=== PATIENT | female | born 1960 | race African-American/Black ===

== ENCOUNTER 2016-07-20 11:41 | Emergency (ER) | payer BC, OTHER ==
[2016-07-20] MEDS ORDERED: FLUORESCEIN OPHTH 1 MG STRIP As Ordered ONE (13:13)
[2016-07-20] MEDS ORDERED: TETRACAINE 0.5% OPHTH SOLN 4ML As Ordered ONE (13:13)
--- NOTE | 2016-07-20 13:49 | EDDOCDS ---
Physician Documentation [facility] Name: Jason Ferrera Age: 55 yrs Sex: Female : 1960 Arrival Date: 07/20/2016 Time: 11:41 Bed I10 / 23 Private MD: Ok Gutierres A. Disposition: 07/20/16 13:28 Discharged to Home/Self Care. Impression: Local infection of the skin and subcutaneous tissue, unspecified, Zoster [herpes zoster] - Most likely above Left eye. - Condition is Stable. - Discharge Instructions: Shingles, [id number]. - Prescriptions for Clindamycin HCl 300 mg Oral Capsule - take 1 capsule by ORAL route every 6 hours; 40 capsule. Valtrex 1 g Oral Tablet - take 1 tablet by ORAL route every 8 hours for 7 days; 21 tablet. - Medication Reconciliation, Local Pharmacy Hours form. - Follow up: Ok Gutierres; When: 1 - 2 days; Reason: Recheck today's complaints, Continuance of care. Follow up: Emergency Department; Reason: Worsening of conditions. Follow up: Moshe Jimenez; When: 1 - 2 days; Reason: Further diagnostic work-up, Recheck today's complaints, Continuance of care. - Problem is new. - Symptoms have improved. Historical: - Allergies: no known allergies; - Home Meds: 1. hydrochlorothiazide 12.5 mg Oral cap 1 cap once daily 2. metformin 500 mg Oral Tb24 1 tab once daily 3. losartan 25 mg oral tab 1 tab once daily 4. atorvastatin oral oral 1 tab nightly 5. aspirin 81 mg Oral chew 1 tab once daily 6. Augmentin Oral every 12 hours - PMHx: Diabetes - NIDDM: controlled; Hypertension; - PSHx: ; Cystectomy; - Social history: Smoking status: Patient states was never smoker of tobacco. No barriers to communication noted, The patient speaks fluent Israeli. - Family history: Not pertinent. - : The pt / caregiver states he / she is not on anticoagulants. Home medication list is obtained from the patient. - Exposure Risk Screening:: None identified. Vital Signs: 07/20 11:44 BP 162 / 91; Pulse 93; Resp 18 S; Temp 97.4(O); Pulse Ox 100% on R/A; Weight 70.76 kg / gr2 156 lbs (R); Height 5 ft. 3 in. (160.02 cm) (R); Pain 0/10; 13:34 BP 152 / 99; Pulse 97; Resp 18; Temp 97.8; Pulse Ox 98% ; Pain 0/10; jam1 11:44 Body Mass Index 27.63 (70.76 kg, 160.02 cm) gr2 Visual Acuity: 13:17 Left Eye Visual acuity 20/60, ; Right Eye Visual acuity 20/100, ; Without Lenses; kr3 MDM: 13:10 Tetracaine (PF) Drops 0.5 % 2 drps Ophthalmic once ordered. ef1 13:10 Flouroscein strips to bedside ordered. ef1 13:10 Visual Acuity ordered. ef1 Administered Medications: 13:28 Drug: Tetracaine (PF) 2 drps [tetracaine HCl (PF) 0.5 % eye drops (2 drps)] {Note: use kr3 by Francisco J CARDENAS} Route: Ophthalmic; Site: left eye; Signatures: Jagdish Robbins RN RN jmk Robie, Kathleen, RN RN kr3 Eufemia Johnson, PA-C PA-C ef1 Tawnya Phillip,OLINDA RN ms18 MTDD
--- NOTE | 2016-07-20 13:49 | EDDOCDS ---
Nurse's Notes [facility] Name: Jason Ferrera Age: 55 yrs Sex: Female : 1960 Arrival Date: 07/20/2016 Time: 11:41 Bed I10 / 23 Private MD: Ok Gutierres A. Diagnosis: Local infection of the skin and subcutaneous tissue, unspecified;Zoster [herpes zoster]-Most likely above Left eye Presentation: 07/20 11:46 Presenting complaint: Patient states: that she went to urgent care for facial swelling ms18 and was given antibiotics. Pt states that the swelling is now worse. Swelling is noted to be on pt's L upper eye lid and partially on the pt's R eyebrow area. Pt denies any blurry vision at this time. Mechanism of Injury: No Mechanism of Injury. The patient denies any loss of vision. Adult Sepsis Screening: The patient does not have new or worsening altered mentation. Patient's respiratory rate is less than 22. Systolic blood pressure is greater than 100. Patient has a qSOFA score of 0- Negative Sepsis Screen. Suicide/Homicide risk assessment- the patient denies having any suicidal and/or homicidal ideations and does not present with any other emotional, behavioral or mental health complaints. Status: Patient is not a gas refrigerator servicer or dependent. Transition of care: patient was not received from another setting of care. 11:46 Acuity: JOHNY Level 3 ms18 11:46 Method Of Arrival: Walkin/Carried/Asstd ms18 Triage Assessment: 11:53 General: Appears in no apparent distress, comfortable, Behavior is appropriate for age, ms18 cooperative. Pain: Location: face Pain currently is 2 out of 10 on a pain scale. Pt Declines HIV testing. Neurological: Level of Consciousness is awake, alert, obeys commands, Oriented to person, place, time. EENT: Denies blurred vision. Respiratory: No deficits noted. Derm: Skin is pink, warm & dry. normal, Swollen area noted on forehead and left eye. Historical: - Allergies: no known allergies; - Home Meds: 1. hydrochlorothiazide 12.5 mg Oral cap 1 cap once daily 2. metformin 500 mg Oral Tb24 1 tab once daily 3. losartan 25 mg oral tab 1 tab once daily 4. atorvastatin oral oral 1 tab nightly 5. aspirin 81 mg Oral chew 1 tab once daily 6. Augmentin Oral every 12 hours - PMHx: Diabetes - NIDDM: controlled; Hypertension; - PSHx: ; Cystectomy; - Social history: Smoking status: Patient states was never smoker of tobacco. No barriers to communication noted, The patient speaks fluent Ghanaian. - Family history: Not pertinent. - : The pt / caregiver states he / she is not on anticoagulants. Home medication list is obtained from the patient. - Exposure Risk Screening:: None identified. Screenin:17 Screening information is obtained from the patient. Fall risk: No risks identified. kr3 Assistance ADL's: requires no assistance with activities of daily living. Abuse/DV Screen: The patient / caregiver reports he/she is: not in a situation that causes fear, pain or injury. Nutritional screening:. Nutritional screening: On diabetic diet. Advance Directives: Currently, there is no health care proxy. home support is adequate. Assessment: 13:46 General: Appears in no apparent distress, raised, scabbed area to left forehead area. jmk slight swelling noted to eyebrow area. No drainage presently VALENTE. Vital Signs: 11:44 BP 162 / 91; Pulse 93; Resp 18 S; Temp 97.4(O); Pulse Ox 100% on R/A; Weight 70.76 kg gr2 (R); Height 5 ft. 3 in. (160.02 cm) (R); Pain 0/10; 13:34 BP 152 / 99; Pulse 97; Resp 18; Temp 97.8; Pulse Ox 98% ; Pain 0/10; jam1 11:44 Body Mass Index 27.63 (70.76 kg, 160.02 cm) gr2 Vitals: 11:44 Log In Time: July 20, 2016 at 11:44. gr2 Visual Acuity: 13:17 Left Eye Visual acuity 20/60, ; Right Eye Visual acuity 20/100, ; Without Lenses; kr3 ED Course: 11:43 Patient visited by Kiki Mendoza. gr2 11:43 Patient moved to Waiting gr2 11:44 Ok Gutierres is Private Physician. gr2 11:46 Patient visited by Kiki Mendoza. gr2 11:46 Patient moved to Pre RCE gr2 11:49 Triage Initiated ms18 12:54 Patient moved to Triage 1 ar3 12:59 [facility] ef1 12:59 Chapin Nguyễn MD is Attending Physician. ef1 13:01 Patient visited by Eufemai Johnson PA-C. ef1 13:13 Patient moved to I10 / 23 ar3 13:18 The patient / caregiver is instructed regarding the plan of care and ED course. kr3 Accompanied by Family Member, Patient has correct armband on for positive identification. 13:28 Patient visited by Eufemia Johnsno PA-C. ef1 13:28 Ok Gutierres is Referral Physician. ef1 13:28 Moshe Jimenez is Referral Physician. ef1 13:46 No IV's were initiated during this patient's visit. No procedures done that require jmk assistance. Administered Medications: 13:28 Drug: Tetracaine (PF) 2 drps [tetracaine HCl (PF) 0.5 % eye drops (2 drps)] {Note: use kr3 by Francisco J CARDENAS} Route: Ophthalmic; Site: left eye; Order Results: There are currently no results for this order. Outcome: 13:28 Discharge ordered by Provider. ef1 13:46 Discharge Assessment: Patient awake, alert and oriented x 3. No cognitive and/or jmk functional deficits noted. Patient verbalized understanding of disposition instructions. patient administered narcotics - no. The following High Risk Discharge criteria are identified: None. Condition: good. Discharge instructions given to patient, Instructed on discharge instructions, Demonstrated understanding of instructions, medications, Pt was receptive of discharge instructions/ teaching. No special radiology studies were completed. Property :Personal belongings accompany Pt. 13:48 Patient left the ED. jmk Signatures: Jagdish Robbins,RN Camilla Peng, ENTRY LEVEL BUYER ENTRY LEVEL BUYER jam1 Divina Brasher,OLINDA RN kr3 Eufemia Johnson PA-C PA-C ef1 Arianna Ferreira, ENTRY LEVEL BUYER ENTRY LEVEL BUYER ar3 Kiki Mendoza gr2 Tawnya Phillip,OLINDA RN ms18 MTDD
--- NOTE | 2016-07-22 14:49 | EDDOCDS ---
Physician Documentation [facility] Name: Jason Ferrera Age: 55 yrs Sex: Female : 1960 Arrival Date: 07/20/2016 Time: 11:41 Bed I10 / 23 Private MD: Ok Gutierres A. Disposition: 07/20/16 13:28 Discharged to Home/Self Care. Impression: Local infection of the skin and subcutaneous tissue, unspecified, Zoster [herpes zoster] - Most likely above Left eye. - Condition is Stable. - Discharge Instructions: Shingles, [id number]. - Prescriptions for Clindamycin HCl 300 mg Oral Capsule - take 1 capsule by ORAL route every 6 hours; 40 capsule. Valtrex 1 g Oral Tablet - take 1 tablet by ORAL route every 8 hours for 7 days; 21 tablet. - Medication Reconciliation, Local Pharmacy Hours form. - Follow up: Ok Gutierres; When: 1 - 2 days; Reason: Recheck today's complaints, Continuance of care. Follow up: Emergency Department; Reason: Worsening of conditions. Follow up: Moshe Jimenez; When: 1 - 2 days; Reason: Further diagnostic work-up, Recheck today's complaints, Continuance of care. - Problem is new. - Symptoms have improved. Historical: - Allergies: no known allergies; - Home Meds: 1. hydrochlorothiazide 12.5 mg Oral cap 1 cap once daily 2. metformin 500 mg Oral Tb24 1 tab once daily 3. losartan 25 mg oral tab 1 tab once daily 4. atorvastatin oral oral 1 tab nightly 5. aspirin 81 mg Oral chew 1 tab once daily 6. Augmentin Oral every 12 hours - PMHx: Diabetes - NIDDM: controlled; Hypertension; - PSHx: ; Cystectomy; - Social history: Smoking status: Patient states was never smoker of tobacco. No barriers to communication noted, The patient speaks fluent South Sudanese. - Family history: Not pertinent. - : The pt / caregiver states he / she is not on anticoagulants. Home medication list is obtained from the patient. - Exposure Risk Screening:: None identified. Vital Signs: 07/20 11:44 BP 162 / 91; Pulse 93; Resp 18 S; Temp 97.4(O); Pulse Ox 100% on R/A; Weight 70.76 kg / gr2 156 lbs (R); Height 5 ft. 3 in. (160.02 cm) (R); Pain 0/10; 13:34 BP 152 / 99; Pulse 97; Resp 18; Temp 97.8; Pulse Ox 98% ; Pain 0/10; jam1 11:44 Body Mass Index 27.63 (70.76 kg, 160.02 cm) gr2 Visual Acuity: 13:17 Left Eye Visual acuity 20/60, ; Right Eye Visual acuity 20/100, ; Without Lenses; kr3 MDM: 13:10 Tetracaine (PF) Drops 0.5 % 2 drps Ophthalmic once ordered. ef1 13:10 Flouroscein strips to bedside ordered. ef1 13:10 Visual Acuity ordered. ef1 14:21 Financial registration complete. mm15 14: [facility] Payment Agreement was scanned into [employer] and attached to record. mm15 14:57 T-Sheet-- Draft Copy was scanned into [employer] and attached to record. gb Administered Medications: 13:28 Drug: Tetracaine (PF) 2 drps [tetracaine HCl (PF) 0.5 % eye drops (2 drps)] {Note: use kr3 by Francisco J CARDENAS} Route: Ophthalmic; Site: left eye; Signatures: Jagdish Robbins,OLINDA RN Ellen Guerin Reg Reg gb Robie, Kathleen,OLINDA RN kr3 Eufemia Johnson PA-C PA-C ef1 José Manuel Roche mm15 Tawnya Phillip RN RN ms18 The chart was reviewed and I authenticate all verbal orders and agree with the evaluation and treatment provided.Attachments: : [facility] Payment Agreement mm15 14:57 T-Sheet-- Draft Copy gb Chart Complete MTDD
--- NOTE | 2016-07-22 14:49 | EDDOCDS ---
Nurse's Notes [facility] Name: Jason Ferrera Age: 55 yrs Sex: Female : 1960 Arrival Date: 07/20/2016 Time: 11:41 Bed I10 / 23 Private MD: Ok Gutierres A. Diagnosis: Local infection of the skin and subcutaneous tissue, unspecified;Zoster [herpes zoster]-Most likely above Left eye Presentation: 07/20 11:46 Presenting complaint: Patient states: that she went to urgent care for facial swelling ms18 and was given antibiotics. Pt states that the swelling is now worse. Swelling is noted to be on pt's L upper eye lid and partially on the pt's R eyebrow area. Pt denies any blurry vision at this time. Mechanism of Injury: No Mechanism of Injury. The patient denies any loss of vision. Adult Sepsis Screening: The patient does not have new or worsening altered mentation. Patient's respiratory rate is less than 22. Systolic blood pressure is greater than 100. Patient has a qSOFA score of 0- Negative Sepsis Screen. Suicide/Homicide risk assessment- the patient denies having any suicidal and/or homicidal ideations and does not present with any other emotional, behavioral or mental health complaints. Status: Patient is not a branch sales and service representative or dependent. Transition of care: patient was not received from another setting of care. 11:46 Acuity: JOHNY Level 3 ms18 11:46 Method Of Arrival: Walkin/Carried/Asstd ms18 Triage Assessment: 11:53 General: Appears in no apparent distress, comfortable, Behavior is appropriate for age, ms18 cooperative. Pain: Location: face Pain currently is 2 out of 10 on a pain scale. Pt Declines HIV testing. Neurological: Level of Consciousness is awake, alert, obeys commands, Oriented to person, place, time. EENT: Denies blurred vision. Respiratory: No deficits noted. Derm: Skin is pink, warm & dry. normal, Swollen area noted on forehead and left eye. Historical: - Allergies: no known allergies; - Home Meds: 1. hydrochlorothiazide 12.5 mg Oral cap 1 cap once daily 2. metformin 500 mg Oral Tb24 1 tab once daily 3. losartan 25 mg oral tab 1 tab once daily 4. atorvastatin oral oral 1 tab nightly 5. aspirin 81 mg Oral chew 1 tab once daily 6. Augmentin Oral every 12 hours - PMHx: Diabetes - NIDDM: controlled; Hypertension; - PSHx: ; Cystectomy; - Social history: Smoking status: Patient states was never smoker of tobacco. No barriers to communication noted, The patient speaks fluent Vincentian. - Family history: Not pertinent. - : The pt / caregiver states he / she is not on anticoagulants. Home medication list is obtained from the patient. - Exposure Risk Screening:: None identified. Screenin:17 Screening information is obtained from the patient. Fall risk: No risks identified. kr3 Assistance ADL's: requires no assistance with activities of daily living. Abuse/DV Screen: The patient / caregiver reports he/she is: not in a situation that causes fear, pain or injury. Nutritional screening:. Nutritional screening: On diabetic diet. Advance Directives: Currently, there is no health care proxy. home support is adequate. Assessment: 13:46 General: Appears in no apparent distress, raised, scabbed area to left forehead area. jmk slight swelling noted to eyebrow area. No drainage presently VALENTE. Vital Signs: 11:44 BP 162 / 91; Pulse 93; Resp 18 S; Temp 97.4(O); Pulse Ox 100% on R/A; Weight 70.76 kg gr2 (R); Height 5 ft. 3 in. (160.02 cm) (R); Pain 0/10; 13:34 BP 152 / 99; Pulse 97; Resp 18; Temp 97.8; Pulse Ox 98% ; Pain 0/10; jam1 11:44 Body Mass Index 27.63 (70.76 kg, 160.02 cm) gr2 Vitals: 11:44 Log In Time: July 20, 2016 at 11:44. gr2 Visual Acuity: 13:17 Left Eye Visual acuity 20/60, ; Right Eye Visual acuity 20/100, ; Without Lenses; kr3 ED Course: 11:43 Patient visited by Kiki Mendoza. gr2 11:43 Patient moved to Waiting gr2 11:44 Ok Gutierres is Private Physician. gr2 11:46 Patient visited by Kiki Mendoza. gr2 11:46 Patient moved to Pre RCE gr2 11:49 Triage Initiated ms18 12:54 Patient moved to Triage 1 ar3 12:59 Eufemia Johnson PA-C is PHCP. ef1 12:59 Chapin Nguyễn MD is Attending Physician. ef1 13:01 Patient visited by Eufemia Johnson PA-C. ef1 13:13 Patient moved to I10 / 23 ar3 13:18 The patient / caregiver is instructed regarding the plan of care and ED course. kr3 Accompanied by Family Member, Patient has correct armband on for positive identification. 13:28 Patient visited by Eufemia Johnson PA-C. ef1 13:28 Ok Gutierres is Referral Physician. ef1 13:28 Moshe Jimenez is Referral Physician. ef1 13:46 No IV's were initiated during this patient's visit. No procedures done that require jmk assistance. 14:22 [facility] Payment Agreement was scanned into [employer] and attached to record. mm15 14:51 Patient name changed from Fibbie\S\\S\Ferrera\S\ to Fibbie\S\ \S\Ferrera. EDMS 14:57 T-Sheet-- Draft Copy was scanned into [employer] and attached to record. gb Administered Medications: 13:28 Drug: Tetracaine (PF) 2 drps [tetracaine HCl (PF) 0.5 % eye drops (2 drps)] {Note: use kr3 by Francisco J CARDENAS} Route: Ophthalmic; Site: left eye; Order Results: There are currently no results for this order. Outcome: 13:28 Discharge ordered by Provider. ef1 13:46 Discharge Assessment: Patient awake, alert and oriented x 3. No cognitive and/or jmk functional deficits noted. Patient verbalized understanding of disposition instructions. patient administered narcotics - no. The following High Risk Discharge criteria are identified: None. Condition: good. Discharge instructions given to patient, Instructed on discharge instructions, Demonstrated understanding of instructions, medications, Pt was receptive of discharge instructions/ teaching. No special radiology studies were completed. Property :Personal belongings accompany Pt. 13:48 Patient left the ED. robertk Signatures: Dispatcher [employer] EDMS Jagdish Robbins,Camilla Peng RN, IT HELP DESK MANAGER IT HELP DESK MANAGER jam1 Ellen Viveros, Reg Reg Divina Grissom RN RN kr3 Eufemia Johnson PA-C PA-C ef1 Arianna Ferreira, IT HELP DESK MANAGER IT HELP DESK MANAGER ar3 Kiki Mendoza gr2 José Manuel Roche mm15 Tawnya Phillip,RN RN ms18 Chart Complete MTDD
--- NOTE | 2016-07-22 14:49 | EDDOCDS ---
Physician Documentation [facility] Name: Jason Ferrera Age: 55 yrs Sex: Female : 1960 Arrival Date: 07/20/2016 Time: 11:41 Bed I10 / 23 Private MD: Ok Gutierres A. Disposition: 07/20/16 13:28 Discharged to Home/Self Care. Impression: Local infection of the skin and subcutaneous tissue, unspecified, Zoster [herpes zoster] - Most likely above Left eye. - Condition is Stable. - Discharge Instructions: Shingles, Qhao-yq-Hnsc. - Prescriptions for Clindamycin HCl 300 mg Oral Capsule - take 1 capsule by ORAL route every 6 hours; 40 capsule. Valtrex 1 g Oral Tablet - take 1 tablet by ORAL route every 8 hours for 7 days; 21 tablet. - Medication Reconciliation, Local Pharmacy Hours form. - Follow up: Ok Gutierres; When: 1 - 2 days; Reason: Recheck today's complaints, Continuance of care. Follow up: Emergency Department; Reason: Worsening of conditions. Follow up: Moshe Jimenez; When: 1 - 2 days; Reason: Further diagnostic work-up, Recheck today's complaints, Continuance of care. - Problem is new. - Symptoms have improved. Historical: - Allergies: no known allergies; - Home Meds: 1. hydrochlorothiazide 12.5 mg Oral cap 1 cap once daily 2. metformin 500 mg Oral Tb24 1 tab once daily 3. losartan 25 mg oral tab 1 tab once daily 4. atorvastatin oral oral 1 tab nightly 5. aspirin 81 mg Oral chew 1 tab once daily 6. Augmentin Oral every 12 hours - PMHx: Diabetes - NIDDM: controlled; Hypertension; - PSHx: ; Cystectomy; - Social history: Smoking status: Patient states was never smoker of tobacco. No barriers to communication noted, The patient speaks fluent Guamanian. - Family history: Not pertinent. - : The pt / caregiver states he / she is not on anticoagulants. Home medication list is obtained from the patient. - Exposure Risk Screening:: None identified. Vital Signs: 07/20 11:44 BP 162 / 91; Pulse 93; Resp 18 S; Temp 97.4(O); Pulse Ox 100% on R/A; Weight 70.76 kg / gr2 156 lbs (R); Height 5 ft. 3 in. (160.02 cm) (R); Pain 0/10; 13:34 BP 152 / 99; Pulse 97; Resp 18; Temp 97.8; Pulse Ox 98% ; Pain 0/10; jam1 11:44 Body Mass Index 27.63 (70.76 kg, 160.02 cm) gr2 Visual Acuity: 13:17 Left Eye Visual acuity 20/60, ; Right Eye Visual acuity 20/100, ; Without Lenses; kr3 MDM: 13:10 Tetracaine (PF) Drops 0.5 % 2 drps Ophthalmic once ordered. ef1 13:10 Flouroscein strips to bedside ordered. ef1 13:10 Visual Acuity ordered. ef1 14:21 Financial registration complete. mm15 14: [facility] Payment Agreement was scanned into [employer] and attached to record. mm15 14:57 T-Sheet-- Draft Copy was scanned into [employer] and attached to record. gb Administered Medications: 13:28 Drug: Tetracaine (PF) 2 drps [tetracaine HCl (PF) 0.5 % eye drops (2 drps)] {Note: use kr3 by Francisco J CARDENAS} Route: Ophthalmic; Site: left eye; Signatures: Jagdish Robbins,OLINDA RN Ellen Guerin Reg Reg gb Robie, Kathleen,OLINDA RN kr3 Eufemia Johnson PA-C PA-C ef1 José Manuel Roche mm15 Tawnya Phillip RN RN ms18 The chart was reviewed and I authenticate all verbal orders and agree with the evaluation and treatment provided.Attachments: : [facility] Payment Agreement mm15 14:57 T-Sheet-- Draft Copy gb Chart Complete MTDD
== END 2016-07-20 13:48 | disposition home or self-care (01) ==
LOC: M ED 11:41
DX: B02.39 Other herpes zoster eye disease (principal); L08.9 Local infection of the skin and subcutaneous tissue, unspecified; E11.9 Type 2 diabetes mellitus without complications; I10 Essential (primary) hypertension; Z79.82 Long term (current) use of aspirin; Z79.899 Other long term (current) drug therapy

== ENCOUNTER 2016-11-05 12:03 | Emergency (ER) | payer BC, OTHER ==
[~2016-11-05] VITALS: Ht 160 cm; Wt 72.6 kg
[2016-11-05] MEDS ORDERED: LOSA50TA20 (12:10)
[2016-11-05] MEDS ORDERED: HYDR12CA (12:10)
[2016-11-05] MEDS ORDERED: ATOR40TA (12:10)
[2016-11-05] MEDS ORDERED: METF500T4 (12:10)
[2016-11-05] MEDS ORDERED: ACETAMINOPHEN TAB 650MG DOSE (2X325MG) PO ONE (12:30)
--- NOTE | 2016-11-05 13:07 | REP ---
Clinical: Trauma. Technique: Single AP view of the pelvis. Findings: No acute fracture dislocation is appreciated. Small partially calcified intrauterine fibroid suggested. Impression: No acute fracture or dislocation. Signed by Christopher Montanez MD 11/05/2016 12:58 P
[2016-11-05 13:56] VITALS: BP 143/92
--- NOTE | 2016-11-05 14:03 | REP ---
SACRUM AND COCCYX: 11/05/2016 CLINICAL HISTORY: Trauma. COMPARISON: AP pelvis this date. FINDINGS: AP inlet and outlet pelvic views of the sacrum and a lateral view show the SI joints symmetric and grossly normal. A course of oval calcification in the deep pelvis suggests a 2.2 cm calcified fibroid. The SI joints are symmetric without sclerosis or erosion. The sacral ala and foramina intact. Rim osteophytes are noted at the acetabular roof. There is no evidence of AVN or fracture. The lateral views shows the sacrum and coccyx intact without evidence of an acute fracture. There are some degenerative changes at L5,-S1 with disc space narrowing and a few millimeters of anterolisthesis of L4 on L5 due to facet arthritis. IMPRESSION: 1. Facet arthritis lower lumbar spine with a few millimeters of anterolisthesis of L4 on L5 and disc space narrowing at L5-S1. 2. Sacrum and its ala unremarkable without fracture or focal lesion, symmetric foramina. SI joints intact. 3. Presumed calcified fibroid in the left paramedian pelvis. Signed by Gio Martinez MD 11/05/2016 02:18 P
== END 2016-11-05 14:28 | disposition home or self-care (01) ==
LOC: M ED 12:34
DX: S30.0XXA Contusion of lower back and pelvis, initial encounter (principal); W10.9XXA Fall (on) (from) unspecified stairs and steps, initial encounter; Y92.89 Other specified places as the place of occurrence of the external cause; Y93.01 Activity, walking, marching and hiking; Y99.8 Other external cause status; M51.37 Other intervertebral disc degeneration, lumbosacral region; M43.16 Spondylolisthesis, lumbar region; I10 Essential (primary) hypertension

== ENCOUNTER → 2016-11-10 | Outpatient (CLI) | payer BC, OTHER ==
[~2016-11-10] MED LIST: ATOR40TA; HYDR12CA; LOSA50TA20; METF500T4
[2016-11-10 06:41] LABS: MEAN CORPUSCULAR HEMOGLOBIN 22.3 pg (27.0-33.0); MEAN CORPUSCULAR HGB CONC 30.9 g/dl (32.0-36.5); MEAN CORPUSCULAR VOLUME 72.3 fl (80.0-96.0); RED CELL DISTRIBUTION WIDTH 15.2 % (11.5-14.5); WHITE BLOOD COUNT 8.7 K/mm3 (4.0-10.0)
[2016-11-10 07:00] LABS: ALBUMIN 3.5 GM/DL (3.2-5.2); ALBUMIN/GLOBULIN RATIO 0.92 (1.00-1.93); ALKALINE PHOSPHATASE 84 U/L (45-117); ALT/SGPT 25 U/L (12-78); ANION GAP 8 MEQ/L (8-16); AST/SGOT 15 U/L (15-37); BILIRUBIN,TOTAL 0.5 MG/DL (0.2-1.0); BLOOD UREA NITROGEN 11 MG/DL (7-18); CALCIUM LEVEL 8.8 MG/DL (8.5-10.1); CARBON DIOXIDE LEVEL 31 MEQ/L (21-32); CHLORIDE LEVEL 102 MEQ/L (98-107); CHOLESTEROL LEVEL 122 MG/DL (<200); CREATININE FOR GFR 0.85 MG/DL (0.55-1.02); GLOMERULAR FILTRATION RATE > 60.0 (>51); GLUCOSE, FASTING 155 MG/DL (70-105); POTASSIUM SERUM 4.4 MEQ/L (3.5-5.1); SODIUM LEVEL 141 MEQ/L (136-145); TOTAL PROTEIN 7.3 GM/DL (6.4-8.2); TRIGLYCERIDES LEVEL 103 MG/DL (<150)
== END ==
LOC: M LAB 06:11
PROVIDERS: ATTEND Family Medicine
DX: E11.9 Type 2 diabetes mellitus without complications (principal)

== ENCOUNTER 2017-02-09 10:22 | Day surgery (SDC) | payer BC, OTHER ==
[~2017-02-09] VITALS: Ht 160 cm; Wt 70.3 kg
[~2017-02-09 10:22] MED LIST changes: +ACETAMINOPHEN 325 MG TAB PO PRN; +ASCO25TA PO; +ASPI81TA85 PO; -ATOR40TA; +ATOR40TA75 PO; +BSS with VANC/TOB/EPI for EYE CASES IR ONE; +CYCLOPENTOLATE 2% OPHTH SOLN 2ML BTL OD ONE; +FARX1TAB3 PO; +HEALON DUET (HEALON 10MG/ML 0.55ML & HEALON ENDOCOAT 30MG/ML 0.85ML) As Ordered ONE; -HYDR12CA; +HYDR12CA PO; +IRON27TA2 PO; +LIDOCAINE 1% SDV 5 ML VIAL As Ordered ONE; +LIDOCAINE 3.5 % 1ML OPHTH TOPICAL GEL OU ONE; -LOSA50TA20; +LOSA50TA20 PO; -METF500T4; +METF500T4 PO; +MOXIFLOXACIN IN BSS 0.25MG/0.25ML INTRACAMERAL INJ (OR EYE ONLY)(J2280) As Ordered ONE; +MULTTAB24 PO; +OFLOXACIN 0.3 % (OCUFLOX) OPTH SOL 5ML OD ONE; +PHENYLEPHRINE 2.5% OPHTH SOL 2ML OD ONE; +POVIDONE-IODINE 5% OPHTH PREP SOL 30ML As Ordered ONE; +PROPARACAINE 0.5% OPHTH SOL 15ML OD PRN; +TRIAMCINOLONE PRES FR 40 MG/ML 1ML(TRIESENCE)(OR EYE ONLY)(J3300 PER 1MG) As Ordered ONE; +TROPICAMIDE 1% OPHTH SOLN 2ML OD ONE; +VITA100072 PO
[2017-02-09] MEDS ORDERED: D5W/0.2% SODIUM CHLORIDE 1,000 ML IV SCH (10:45)
[2017-02-09] MEDS ORDERED: LIDOCAINE 4% INJ 5 ML AMP OU ONE (13:03)
[2017-02-09] MEDS ORDERED: fentaNYL 100 MCG/2 ML INJECTION (J3010) As Ordered ONE (13:31)
[2017-02-09] MEDS ORDERED: MIDAZOLAM INJ 2 MG/2 ML VIAL (J2250) As Ordered ONE (13:31)
[2017-02-09] MEDS ORDERED: AcetaZOLAMIDE 500 MG ER CAP PO ONE (13:45)
[2017-02-09] MEDS ORDERED: KETOROLAC 0.5% OPHTH SOLN OD ONE (13:45)
[2017-02-09] MEDS ORDERED: TRIMETHOBENZAMIDE 300 MG CAP PO PRN (13:45)
[2017-02-09 14:10] VITALS: BP 120/75
== END 2017-02-09 14:15 | disposition home or self-care (01) ==
LOC: M SDC 10:22
PROVIDERS: ATTEND Ophthalmology
DX: H25.9 Unspecified age-related cataract (principal); E11.9 Type 2 diabetes mellitus without complications; I10 Essential (primary) hypertension; E78.5 Hyperlipidemia, unspecified; Z79.82 Long term (current) use of aspirin; Z79.899 Other long term (current) drug therapy
CPT/HCPCS: 66984; J2250; J2280; J3010; J3300

== ENCOUNTER 2017-07-13 10:27 | Day surgery (SDC) | payer BC, OTHER ==
[2017-07-13] MEDS: NS 1,000 ML IV (10:59)
[2017-07-13] MEDS ORDERED: PROPOFOL 200 MG/20 ML VIAL As Ordered (12:00)
== END 2017-07-13 12:30 | disposition home or self-care (01) ==
LOC: M OPP 10:27
DX: Z12.11 Encounter for screening for malignant neoplasm of colon (principal); K64.0 First degree hemorrhoids; I10 Essential (primary) hypertension; E78.5 Hyperlipidemia, unspecified; E11.9 Type 2 diabetes mellitus without complications; D64.9 Anemia, unspecified; M19.90 Unspecified osteoarthritis, unspecified site; Z78.0 Asymptomatic menopausal state; Z79.82 Long term (current) use of aspirin; Z79.899 Other long term (current) drug therapy; Z80.41 Family history of malignant neoplasm of ovary
CPT/HCPCS: G0121

== ENCOUNTER → 2017-11-19 | Outpatient (CLI) | payer BC, OTHER ==
[2017-11-19 07:38] LABS: BASO # 0.1 10^3/uL (0.0-0.2); BASO % 0.7 % (0.0-1.0); EOS # 0.3 10^3/uL (0.0-0.50); HEMATOCRIT 41.1 % (36.0-47.0); HEMOGLOBIN 12.7 g/dl (12.0-15.5); IMMATURE GRANULOCYTE % 0.3 % (0-3.0); LYMPH # 3.2 10^3/uL (1.5-4.5); LYMPH % 42.7 % (24.0-44.0); MEAN CORPUSCULAR HEMOGLOBIN 21.3 pg (27.0-33.0); MEAN CORPUSCULAR HGB CONC 30.9 g/dl (32.0-36.5); MONO # 0.4 10^3/uL (0.0-0.8); MONO % 5.8 % (0.0-5.0); NEUTROPHILS # 3.5 10^3/uL (1.8-7.7); NEUTROPHILS % 46.5 % (36.0-66.0); PLATELET COUNT, AUTOMATED 264 10^3/uL (150-450); RED BLOOD COUNT 5.96 10^6/uL (4.00-5.40); RED CELL DISTRIBUTION WIDTH 16.7 % (11.5-14.5); WHITE BLOOD COUNT 7.6 10^3/uL (4.0-10.0)
[2017-11-19 08:16] LABS: ALBUMIN 3.7 GM/DL (3.2-5.2); ALBUMIN/GLOBULIN RATIO 0.97 (1.00-1.93); ALKALINE PHOSPHATASE 89 U/L (45-117); ALT/SGPT 21 U/L (12-78); ANION GAP 5 MEQ/L (8-16); AST/SGOT 12 U/L (7-37); BILIRUBIN,TOTAL 0.3 MG/DL (0.2-1.0); BLOOD UREA NITROGEN 11 MG/DL (7-18); CALCIUM LEVEL 8.7 MG/DL (8.5-10.1); CARBON DIOXIDE LEVEL 32 MEQ/L (21-32); CHLORIDE LEVEL 105 MEQ/L (98-107); CHOLESTEROL LEVEL 131 MG/DL (<200); GLOMERULAR FILTRATION RATE > 60.0 (>51); GLUCOSE, FASTING 120 MG/DL (70-100); HDL CHOLESTEROL 59 MG/DL (>40); LDL CHOLESTEROL 53.2 MG/DL (<100); NON-HDL-C 72 MG/DL; SODIUM LEVEL 142 MEQ/L (136-145); TOTAL PROTEIN 7.5 GM/DL (6.4-8.2); TRIGLYCERIDES LEVEL 94 MG/DL (<150)
[2017-11-19 08:24] LABS: CREATININE, URINE 50.3 MG/DL; CREATININE,RANDOM URINE 50.3 MG/DL; MAU/CREAT RATIO 250.4 MCG/MG (0.0-30.0)
[2017-11-19 08:47] LABS: ESTIMATED AVERAGE GLUCOSE 194 MG/DL (60-110); HEMOGLOBIN A1c 8.4 %
== END ==
LOC: M LAB 06:34
DX: E11.9 Type 2 diabetes mellitus without complications (principal)

== ENCOUNTER → 2018-05-26 | Outpatient (CLI) | payer BC, OTHER | LOC: M WHC 09:53 | DX: N85.2 Hypertrophy of uterus (principal); Z13.820 Encounter for screening for osteoporosis; D25.1 Intramural leiomyoma of uterus; D25.2 Subserosal leiomyoma of uterus | CPT/HCPCS: 76830 ==

== ENCOUNTER → 2018-08-05 | Outpatient (CLI) | payer BC, OTHER ==
[~2018-08-05] MED LIST changes: -ACETAMINOPHEN 325 MG TAB PO PRN; -BSS with VANC/TOB/EPI for EYE CASES IR ONE; -CYCLOPENTOLATE 2% OPHTH SOLN 2ML BTL OD ONE; -HEALON DUET (HEALON 10MG/ML 0.55ML & HEALON ENDOCOAT 30MG/ML 0.85ML) As Ordered ONE; +IBUP80TA PO; +IRON1TAB PO; -LIDOCAINE 1% SDV 5 ML VIAL As Ordered ONE; -LIDOCAINE 3.5 % 1ML OPHTH TOPICAL GEL OU ONE; -LOSA50TA20 PO; +LOSA50TA88 PO; -MOXIFLOXACIN IN BSS 0.25MG/0.25ML INTRACAMERAL INJ (OR EYE ONLY)(J2280) As Ordered ONE; +NATURAL TEARS OU; -OFLOXACIN 0.3 % (OCUFLOX) OPTH SOL 5ML OD ONE; +PERCOCET PO; -PHENYLEPHRINE 2.5% OPHTH SOL 2ML OD ONE; -POVIDONE-IODINE 5% OPHTH PREP SOL 30ML As Ordered ONE; -PROPARACAINE 0.5% OPHTH SOL 15ML OD PRN; -TRIAMCINOLONE PRES FR 40 MG/ML 1ML(TRIESENCE)(OR EYE ONLY)(J3300 PER 1MG) As Ordered ONE; -TROPICAMIDE 1% OPHTH SOLN 2ML OD ONE; +VITA500T53 PO
[2018-08-05 08:29] LABS: HEMATOCRIT 41.1 % (36.0-47.0); HEMOGLOBIN 12.8 g/dl (12.0-15.5); MEAN CORPUSCULAR HEMOGLOBIN 21.3 pg (27.0-33.0); MEAN CORPUSCULAR HGB CONC 31.1 g/dl (32.0-36.5); MEAN CORPUSCULAR VOLUME 68.3 fl (80.0-96.0); PLATELET COUNT, AUTOMATED 268 10^3/uL (150-450); RED BLOOD COUNT 6.02 10^6/uL (4.00-5.40); WHITE BLOOD COUNT 6.6 10^3/uL (4.0-10.0)
[2018-08-05 08:37] LABS: BLOOD UREA NITROGEN 11 MG/DL (7-18); CALCIUM LEVEL 9.3 MG/DL (8.5-10.1); CARBON DIOXIDE LEVEL 31 MEQ/L (21-32); CHLORIDE LEVEL 101 MEQ/L (98-107); CREATININE FOR GFR 0.79 MG/DL (0.55-1.30); GLOMERULAR FILTRATION RATE > 60.0 (>51); GLUCOSE, FASTING 139 MG/DL (70-100); POTASSIUM SERUM 3.8 MEQ/L (3.5-5.1); SODIUM LEVEL 139 MEQ/L (136-145)
--- NOTE | 2018-08-05 13:18 | ECGEPIP ---
Stationary ECG Study [facility] Test Date: 2018-08-05 Pat Name: JOVON CORRAL Department: Room: - Gender: F Rolled Ham Lacer: AB : 1960 Requested By: Harjit Payne Order Number: [id number] Reading MD: Mckayla Sierra Measurements Intervals [place] Rate: 76 P: 56 TN: 162 QRS: 14 QRSD: 83 T: 16 QT: 387 QTc: 436 Interpretive Statements SINUS RHYTHM WITH SINUS ARRHYTHMIA NO PRIOR Electronically Signed On 08-05-2018 13:17:33 EST by Mckayla Sierra
== END ==
LOC: M LAB 07:29
PROVIDERS: ATTEND Anesthesiology
DX: Z01.818 Encounter for other preprocedural examination (principal); R03.0 Elevated blood-pressure reading, without diagnosis of hypertension; E78.00 Pure hypercholesterolemia, unspecified; E11.9 Type 2 diabetes mellitus without complications; D64.9 Anemia, unspecified; Z86.14 Personal history of Methicillin resistant Staphylococcus aureus infection

== ENCOUNTER → 2018-08-05 | Outpatient (CLI) | payer BC, OTHER ==
[2018-08-05 08:29] LABS: BASO % 0.6 % (0.0-1.0); EOS # 0.2 10^3/uL (0.0-0.50); HEMATOCRIT 42.2 % (36.0-47.0); HEMOGLOBIN 13.3 g/dl (12.0-15.5); LYMPH # 2.5 10^3/uL (1.5-4.5); LYMPH % 38.4 % (24.0-44.0); MEAN CORPUSCULAR HEMOGLOBIN 21.7 pg (27.0-33.0); MEAN CORPUSCULAR HGB CONC 31.5 g/dl (32.0-36.5); MONO # 0.4 10^3/uL (0.0-0.8); MONO % 6.4 % (0.0-5.0); NEUTROPHILS # 3.4 10^3/uL (1.8-7.7); NEUTROPHILS % 51.3 % (36.0-66.0); PLATELET COUNT, AUTOMATED 274 10^3/uL (150-450); RED BLOOD COUNT 6.12 10^6/uL (4.00-5.40); WHITE BLOOD COUNT 6.6 10^3/uL (4.0-10.0)
[2018-08-05 08:40] LABS: ALBUMIN 3.7 GM/DL (3.2-5.2); ALT/SGPT 20 U/L (12-78); BILIRUBIN,TOTAL 0.4 MG/DL (0.2-1.0); BLOOD UREA NITROGEN 11 MG/DL (7-18); CALCIUM LEVEL 8.7 MG/DL (8.5-10.1); CARBON DIOXIDE LEVEL 32 MEQ/L (21-32); CHLORIDE LEVEL 101 MEQ/L (98-107); CHOLESTEROL LEVEL 135 MG/DL (<200); CHOLESTEROL RISK RATIO 2.142 (<5); CREATININE FOR GFR 0.77 MG/DL (0.55-1.30); GLOMERULAR FILTRATION RATE > 60.0 (>51); GLUCOSE, FASTING 138 MG/DL (70-100); HDL CHOLESTEROL 63 MG/DL (>40); LDL CHOLESTEROL 54 MG/DL (<100); NON-HDL-C 72 MG/DL; POTASSIUM SERUM 3.8 MEQ/L (3.5-5.1); SODIUM LEVEL 140 MEQ/L (136-145); TOTAL PROTEIN 7.4 GM/DL (6.4-8.2); TRIGLYCERIDES LEVEL 91 MG/DL (<150)
[2018-08-05 08:43] LABS: CREATININE, URINE 37.6 MG/DL; MALB URINE SIEMENS 19.2 MG/L
[2018-08-05 09:08] LABS: HEMOGLOBIN A1c 8.6 %
== END ==
LOC: M LAB 07:37
PROVIDERS: ATTEND Family Medicine
DX: E11.9 Type 2 diabetes mellitus without complications (principal)

== ENCOUNTER 2018-08-10 06:14 | Day surgery (SDC) | payer BC, OTHER ==
[~2018-08-10] VITALS: Ht 160 cm; Wt 68.0 kg
[~2018-08-10 06:14] MED LIST changes: -IBUP80TA PO; -PERCOCET PO
[2018-08-10 06:45] LABS: HEMATOCRIT 42.4 % (36.0-47.0); HEMOGLOBIN 13.1 g/dl (12.0-15.5); MEAN CORPUSCULAR HEMOGLOBIN 21.5 pg (27.0-33.0); MEAN CORPUSCULAR HGB CONC 30.9 g/dl (32.0-36.5); MEAN CORPUSCULAR VOLUME 69.7 fl (80.0-96.0); PLATELET COUNT, AUTOMATED 259 10^3/uL (150-450); RED BLOOD COUNT 6.08 10^6/uL (4.00-5.40); WHITE BLOOD COUNT 8.4 10^3/uL (4.0-10.0)
[2018-08-10 07:00] LABS: BLOOD UREA NITROGEN 8 MG/DL (7-18); CALCIUM LEVEL 9.1 MG/DL (8.5-10.1); CARBON DIOXIDE LEVEL 32 MEQ/L (21-32); CHLORIDE LEVEL 103 MEQ/L (98-107); CREATININE FOR GFR 0.77 MG/DL (0.55-1.30); GLOMERULAR FILTRATION RATE > 60.0 (>51); GLUCOSE, FASTING 143 MG/DL (70-100); POTASSIUM SERUM 4.1 MEQ/L (3.5-5.1); SODIUM LEVEL 140 MEQ/L (136-145)
[2018-08-10] MEDS ORDERED: LR 1,000 ML IV ONE (07:00)
[2018-08-10] MEDS ORDERED: LIDOCAINE 2% INJ 100 MG/5 ML SDV (FOR ANES.) As Ordered ONE (07:04)
[2018-08-10] MEDS ORDERED: LIDOCAINE 2% JELLY 6 ML SYRINGE As Ordered ONE (07:04)
[2018-08-10] MEDS ORDERED: fentaNYL 100 MCG/2 ML INJECTION (J3010) As Ordered ONE (07:04)
[2018-08-10] MEDS ORDERED: MIDAZOLAM INJ 2 MG/2 ML VIAL (J2250) As Ordered ONE (07:04)
[2018-08-10] MEDS ORDERED: PROPOFOL 200 MG/20 ML VIAL As Ordered ONE (07:04)
[2018-08-10] MEDS ORDERED: HYDROmorphone HCL 2 MG/ML 1ML VIAL (J1170) As Ordered ONE (07:04)
[2018-08-10] MEDS ORDERED: ONDANSETRON 4MG/2ML VIAL (J2405) As Ordered ONE ×2 (07:04→13:24)
[2018-08-10] MEDS ORDERED: ROCURONIUM BROMIDE 50 MG/5 ML VIAL As Ordered ONE ×2 (07:04→09:54)
[2018-08-10] MEDS ORDERED: NEOSTIGMINE 10 MG/10 ML VIAL (J2710) As Ordered ONE (07:04)
[2018-08-10] MEDS ORDERED: dexameTHASONE 4 MG/ML 1ML VIAL (J1100) As Ordered ONE (07:04)
[2018-08-10] MEDS ORDERED: GLYCOPYRROLATE INJ 0.2 MG/ML 2 ML VIAL As Ordered ONE (07:04)
[2018-08-10] MEDS ORDERED: FLUORESCEIN 10% (100MG/ML) 5 ML VIAL As Ordered ONE (07:10)
[2018-08-10] MEDS ORDERED: BUPIVACAINE/EPIN 0.25% 30 ML VIAL As Ordered ONE (07:10)
[2018-08-10] MEDS ORDERED: ACETAMINOPHEN 650 MG SUPP As Ordered ONE (07:10)
[2018-08-10] MEDS ORDERED: PHENYLephrine HCL 500 MCG/5 ML (100MCG/ML) SYRINGE (J2370) As Ordered ONE (10:07)
[2018-08-10] MEDS ORDERED: ceFAZolin 2 GM/D5W 50 ML IV BAG (J0690 PER 500MG) As Ordered ONE (11:58)
[2018-08-10] MEDS ORDERED: fentaNYL 100 MCG/2 ML INJECTION (J3010) IV PRN (13:15)
[2018-08-10] MEDS ORDERED: LR 1,000 ML IV SCH (13:15)
[2018-08-10] MEDS ORDERED: PERCOCET 5MG/325MG TAB PO PRN (13:15)
[2018-08-10] MEDS ORDERED: ONDANSETRON 4MG/2ML VIAL (J2405) IV PRN (13:30)
[2018-08-10] MEDS ORDERED: PROMETHAZINE INJ 25 MG/ML VIAL (J2550) As Ordered ONE (13:51)
[2018-08-10] MEDS: PROMETHAZINE INJ 25 MG/ML VIAL (J2550) IV PRN ×2 (13:52→13:57)
[2018-08-10] MEDS: IBUPROFEN 800 MG TAB PO SCH ×2 (14:00→20:48)
[2018-08-10] MEDS: SIMETHICONE 80 MG CHEW TAB PO SCH ×2 (14:00→20:48)
[2018-08-10 14:20] VITALS: BP 143/84
[2018-08-10] MEDS: LR 1,000 ML IV SCH ×2 (14:20)
[2018-08-10 14:55] VITALS: BP 120/66
[2018-08-10 15:01] LABS: MEAN CORPUSCULAR HEMOGLOBIN 21.7 pg (27.0-33.0); MEAN CORPUSCULAR VOLUME 70.1 fl (80.0-96.0); PLATELET COUNT, AUTOMATED 213 10^3/uL (150-450); RED BLOOD COUNT 5.02 10^6/uL (4.00-5.40); WHITE BLOOD COUNT 20.5 10^3/uL (4.0-10.0)
[2018-08-10 15:14] LABS: HEMATOCRIT 35.2 % (36.0-47.0); HEMOGLOBIN 10.9 g/dl (12.0-15.5)
[2018-08-10 15:55] VITALS: BP 120/72
[2018-08-10 16:55] VITALS: BP 131/85
[2018-08-10 17:55] VITALS: BP 136/91
[2018-08-10] MEDS: PERCOCET 5MG/325MG TAB PO PRN (17:57)
[2018-08-10 18:55] VITALS: BP 125/89
[2018-08-11] VITALS: BP 107/56
[2018-08-11] MEDS: PERCOCET 5MG/325MG TAB PO PRN (01:04)
[2018-08-11] MEDS: SIMETHICONE 80 MG CHEW TAB PO SCH ×2 (02:43→08:39)
[2018-08-11] MEDS: IBUPROFEN 800 MG TAB PO SCH ×2 (02:43→08:39)
[2018-08-11 04:00] VITALS: BP 120/64
[2018-08-11] MEDS: LR 1,000 ML IV SCH (05:30)
[2018-08-11 07:35] LABS: HEMATOCRIT 26.9 % (36.0-47.0); MEAN CORPUSCULAR HEMOGLOBIN 21.6 pg (27.0-33.0); MEAN CORPUSCULAR VOLUME 67.6 fl (80.0-96.0); PLATELET COUNT, AUTOMATED 186 10^3/uL (150-450); RED BLOOD COUNT 3.98 10^6/uL (4.00-5.40); WHITE BLOOD COUNT 12.7 10^3/uL (4.0-10.0)
[2018-08-11 07:45] LABS: HEMOGLOBIN 8.6 g/dl (12.0-15.5)
[2018-08-11 08:00] VITALS: BP 142/75
[2018-08-11 08:05] LABS: BLOOD UREA NITROGEN 13 MG/DL (7-18); CALCIUM LEVEL 7.7 MG/DL (8.5-10.1); CARBON DIOXIDE LEVEL 30 MEQ/L (21-32); CHLORIDE LEVEL 107 MEQ/L (98-107); CREATININE FOR GFR 0.69 MG/DL (0.55-1.30); GLOMERULAR FILTRATION RATE > 60.0 (>51); GLUCOSE, FASTING 143 MG/DL (70-100); POTASSIUM SERUM 3.7 MEQ/L (3.5-5.1); SODIUM LEVEL 141 MEQ/L (136-145)
[2018-08-11] MEDS ORDERED: PERCOCET PO (08:27)
[2018-08-11] MEDS ORDERED: IBUP80TA PO (08:27)
--- NOTE | 2018-08-11 08:55 | RO ---
DATE OF PROCEDURE: 08/10/2018 Jason is a 57-year-old female with an extensive history of abnormal uterine bleeding, enlarged fibroid uterus and a cervical polyp with multiple intra-abdominal surgeries. After counseling in the office, a decision was made to proceed with a robotic-assisted total laparoscopic hysterectomy, removal of both tubes and ovaries, possible myomectomies. PREOPERATIVE DIAGNOSES: 1. Enlarged uterus. 2. Fibroid uterus. 3. Cervical polyp. 4. Multiple intra-abdominal surgeries. POSTOPERATIVE DIAGNOSES: 1. Enlarged uterus. 2. Fibroid uterus. 3. Cervical polyp. 4. Multiple intra-abdominal surgeries. 5. 16 cm uterus with multiple fibroids. 6. Pelvic and omental adhesion. PROCEDURE: 1. Robotic-assisted laparoscopic hysterectomy. 2. Bilateral salpingo-oophorectomy. 3. Myomectomies. 4. Cystoscopy. 5. Extensive lysis of adhesions. SURGEON: Dr. Alexx Ham. METAL FURNITURE REPAIRER: Jael Lindsey. ANESTHESIA: General. COMPLICATIONS: None. ESTIMATED BLOOD LOSS: 500 mL. FINDINGS: 16-17 cm sized uterus sounding to approximately 12 cm at the endometrial cavity with multiple fibroids. The omentum and peritoneum was adherent to the anterior abdominal wall as well as the lower uterine segment. On cystoscopy, bilateral ureteral jets noted. No evidence of any bladder injury or ureteral injury. PROCEDURE: After obtaining informed consent, the patient was taken to the operating room where general anesthetic was found to be adequate. She was then draped and prepped in the usual sterile fashion in the dorsal lithotomy position. At this point, a HUMI II uterine manipulator was placed after sounding the uterus to approximately 12 cm in size. After placing the HUMI II uterine manipulator, Francois catheter placed in the bladder for drainage. We then turned our attention to the abdomen where 10 mm supraumbilical incision was made using the Veress needle. The abdomen was insufflated with CO2 gas to approximately 3.5 liters. We then placed a 10/12 trocar under direct visualization for the camera port. At this point, two 8 mm left lateral port was placed for robotic arm two and in the assist port. On the right side, an 8 mm left lateral port was placed for robotic arm one. At this point, the patient was placed in Trendelenburg. The omental adhesions were noted. We then used an Bienvenido Harmonic scalpel and a series of sharp and blunt dissection. These adhesions were removed freeing the pelvis so we could fully evaluate (cut off). At this point, the robot was brought to the patient's side and a 45 degrees angle and was docked in usual fashion. We then placed an Endoshear in one and bipolar grasper in arm two. I then unscrubbed and went to the surgeon console to begin the surgery. The uterus was found to be enlarged all way up to the umbilicus with the lower uterine segment adherent to the bladder. At this point, careful dissection was done through to the infundibulopelvic ligament. This was cauterized and cut. We then took serial bites all way down to the round ligament. This was also cauterized and cut using the bipolar grasper and the Endoshear. The anterior leaflet of the broad ligament was then dissected all the way down to where the bladder adhesions were done with a series of blunt and sharp dissection. The bladder was then peeled off the lower segment of the uterus. Attention was then turned to the opposite side which in a similar fashion, we then attempted the same procedure on the other side taking down the infundibulopelvic ligament all the way down to the round ligament. This was also cauterized and cut using bipolar grasper and the Endoshear. At this point, the bladder adhesions from the lower uterine segment was completely freed out. We were able to visualize the cup on the uterine manipulator. A myomectomy was then performed to fully able to do the anterior and posterior colpotomy. The fibroid was left inside to be removed later. At this point, the anterior colpotomy was performed as well as a posterior colpotomy. The uterus was too large to fit through the vaginal cuff. However, we did remove multiple fibroid as well as the cervical stump on the uterus vaginally. Given the size of the uterus and the fact that it did have some fibroid, the uterus was left in the abdominal cavity. I then went back to the surgeon console and closed the vaginal cuff using the #2-0 V-Loc suture in running fashion. After closing of the vaginal cuff, 1 mL of Furacin was given by the anesthesiologist. The bladder was then retrograde filled with 250 mL of normal saline. A cystoscopy was performed. Bilateral ureteral jets were noted. No evidence of any bladder injury noted. At this point, the Francois catheter was placed back in the bladder for drainage. I then turned my attention to the abdomen where the robot was then undocked. The supraumbilical incision was slightly enlarged to proximately 1-1/2 inches. An Endo bag was placed. The uterus was placed in the Endo bag and brought out to the umbilicus and the uterus was then removed in a coring fashion removing the uterus and fibroid. After the uterus and fibroid was removed through the umbilicus, the fascia was identified. The fascia was closed using #2-0 Vicryl in a running fashion and the skin closed in a subcuticular fashion. The abdomen was re-insufflated with CO2 gas. Again the abdomen and pelvis was inspected. No evidence of any injury noted. Pelvis copiously irrigated with normal saline and suctioned out. All the instruments were removed and the trocar sites were then closed using #3-0 Vicryl in a subcuticular fashion. 0.25% Marcaine placed for postoperative pain. Dermabond placed. The patient tolerated the procedure well. She was then transferred to recovery room in stable condition.
== END 2018-08-11 10:25 | disposition home or self-care (01) ==
LOC: M SDC 06:14 → M PED 14:20 → M SDC 08-11 10:25
PROVIDERS: ATTEND Obstetrics & Gynecology
DX: N85.2 Hypertrophy of uterus (principal); D25.9 Leiomyoma of uterus, unspecified; N84.0 Polyp of corpus uteri; N73.6 Female pelvic peritoneal adhesions (postinfective); N93.9 Abnormal uterine and vaginal bleeding, unspecified; I10 Essential (primary) hypertension; E11.9 Type 2 diabetes mellitus without complications; E78.00 Pure hypercholesterolemia, unspecified; D64.9 Anemia, unspecified; M12.9 Arthropathy, unspecified; R21 Rash and other nonspecific skin eruption; Z79.899 Other long term (current) drug therapy; Z79.82 Long term (current) use of aspirin; Z79.84 Long term (current) use of oral hypoglycemic drugs; Z86.14 Personal history of Methicillin resistant Staphylococcus aureus infection; Z78.0 Asymptomatic menopausal state; Z98.41 Cataract extraction status, right eye; Z96.1 Presence of intraocular lens
CPT/HCPCS: 36415; 58573; 58660; 80048; 85027; 86850; 86900; 86901; 88307; J0690; J1100; J1170; J2250; J2370; J2405; J2710; J3010

== ENCOUNTER → 2019-11-22 | Outpatient (CLI) | payer BC, OTHER ==
[~2019-11-22] MED LIST changes: -ASCO25TA PO; +IBUP80TA PO; +METF-838 PO; -METF500T4 PO; +PERCOCET PO; +VITA100018 PO; -VITA100072 PO; +VITA1TAB23 PO; +VITA500T17 PO; -VITA500T53 PO
[2019-11-22 06:50] LABS: HEMATOCRIT 41.1 % (36.0-47.0); HEMOGLOBIN 12.5 g/dl (12.0-15.5); MEAN CORPUSCULAR HGB CONC 30.4 g/dl (32.0-36.5); MEAN CORPUSCULAR VOLUME 69.2 fl (80.0-96.0); PLATELET COUNT, AUTOMATED 250 10^3/uL (150-450); RED BLOOD COUNT 5.94 10^6/uL (4.00-5.40); WHITE BLOOD COUNT 7.1 10^3/uL (4.0-10.0)
[2019-11-22 07:23] LABS: ALBUMIN 3.4 GM/DL (3.2-5.2); ALT/SGPT 33 U/L (12-78); BILIRUBIN,TOTAL 0.5 MG/DL (0.2-1.0); BLOOD UREA NITROGEN 11 MG/DL (7-18); CALCIUM LEVEL 8.6 MG/DL (8.8-10.2); CARBON DIOXIDE LEVEL 31 MEQ/L (21-32); CHLORIDE LEVEL 104 MEQ/L (98-107); CHOLESTEROL LEVEL 124 MG/DL (<200); CHOLESTEROL RISK RATIO 2.384 (<5); CREATININE FOR GFR 0.79 MG/DL (0.55-1.30); FERRITIN 112 NG/ML (8-252); GLOMERULAR FILTRATION RATE > 60.0 (>45); GLUCOSE, FASTING 129 MG/DL (70-100); HDL CHOLESTEROL 52 MG/DL (>40); IRON (FE) 54 UG/DL (50-170); LDL CHOLESTEROL 53 MG/DL (<100); NON-HDL-C 72 MG/DL; PERCENT SATURATION 20.6 % (13.2-45.0); SODIUM LEVEL 141 MEQ/L (136-145); TOTAL IRON BINDING CAPACITY 262 UG/DL (250-450); TOTAL PROTEIN 7.3 GM/DL (6.4-8.2); TRIGLYCERIDES LEVEL 96 MG/DL (<150)
[2019-11-22 07:30] LABS: MAU/CREAT RATIO 6.6 MCG/MG (0.0-30.0)
[2019-11-24 17:07] LABS: HGB SOLUBILITY Negative (Negative)
== END ==
LOC: M LAB 06:04
PROVIDERS: ATTEND Family Medicine
DX: D64.9 Anemia, unspecified (principal); E11.9 Type 2 diabetes mellitus without complications

== ENCOUNTER → 2020-11-28 | Outpatient (CLI) | payer BC, OTHER ==
[~2020-11-28] MED LIST changes: -ASPI81TA85 PO; +ASPI81TA86 PO; -VITA1TAB23 PO; +VITA250T20 PO
[2020-11-28 07:22] LABS: HEMATOCRIT 40.8 % (36.0-47.0); HEMOGLOBIN 12.3 g/dl (12.0-15.5); MEAN CORPUSCULAR HEMOGLOBIN 21.4 pg (27.0-33.0); MEAN CORPUSCULAR HGB CONC 30.1 g/dl (32.0-36.5); MEAN CORPUSCULAR VOLUME 70.8 fl (80.0-96.0); PLATELET COUNT, AUTOMATED 280 10^3/uL (150-450); RED BLOOD COUNT 5.76 10^6/uL (4.00-5.40); WHITE BLOOD COUNT 8.4 10^3/uL (4.0-10.0)
[2020-11-28 07:48] LABS: HEMOGLOBIN A1c 7.5 %
[2020-11-28 07:50] LABS: ALBUMIN 3.6 GM/DL (3.2-5.2); ALT/SGPT 22 U/L (12-78); BILIRUBIN,TOTAL 0.3 MG/DL (0.2-1.0); BLOOD UREA NITROGEN 11 MG/DL (7-18); CALCIUM LEVEL 8.9 MG/DL (8.8-10.2); CARBON DIOXIDE LEVEL 30 MEQ/L (21-32); CHLORIDE LEVEL 107 MEQ/L (98-107); CHOLESTEROL LEVEL 122 MG/DL (<200); CREATININE FOR GFR 0.74 MG/DL (0.55-1.30); GLOMERULAR FILTRATION RATE > 60.0 (>45); GLUCOSE, FASTING 134 MG/DL (70-100); HDL CHOLESTEROL 57 MG/DL (>40); LDL CHOLESTEROL 45 MG/DL (<100); NON-HDL-C 65 MG/DL; POTASSIUM SERUM 4.1 MEQ/L (3.5-5.1); SODIUM LEVEL 142 MEQ/L (136-145); TOTAL PROTEIN 7.2 GM/DL (6.4-8.2); TRIGLYCERIDES LEVEL 102 MG/DL (<150)
== END ==
LOC: M LAB 06:32
PROVIDERS: ATTEND Family Medicine
DX: E11.9 Type 2 diabetes mellitus without complications (principal)

== ENCOUNTER → 2021-02-12 | Outpatient (CLI) | payer BC ==
--- NOTE | 2021-02-12 11:02 | REPMRS ---
Patient History The patient states she has not had a clinical breast exam in over a year. Patient is postmenopausal. Family history of ovarian cancer at age 60 in mother. Benign US guided breast biopsy of the right breast, 2008. No Hormone Replacement Therapy Patient states no breast complaints today. Patient has signed MRS History Sheet. Digital Woman Screen Mammo: February 12, 2021 - Exam #: [id number] Bilateral CC and MLO view(s) were taken. Technologist: Kelly Rosario, Technologist Prior study comparison: February 07, 2020, bilateral digital mammo screening bilat, performed at [facility]. January 25, 2019, bilateral digital mammo screening bilat, performed at [facility]. January 24, 2018, bilateral digital mammo screening bilat, performed at [facility]. FINDINGS: There are scattered fibroglandular densities. The Volpara volumetric breast density category is:B. There has been no change in the appearance of the mammogram from the prior studies. There is a mild amount of scattered fibroglandular density which is fairly symmetric. There is no interval development of dominant mass, architectural distortion, or grouped microcalcification suggestive of malignancy. 3-D tomosynthesis shows no additional findings. Assessment: BI-RADS/ACR category 1 mammogram. Negative Mammogram. Recommendation Routine screening mammogram of both breasts in 1 year (for women over age 40). This patient's [facility] Lifetime Breast Cancer Risk is estimated at 6.7 %. This mammogram was interpreted with the aid of an FDA-approved computer-aided dectection system. Electronically Signed By: Von Pineda MD 02/12/21 [id number]
== END ==
LOC: M WHC 09:20
PROVIDERS: ATTEND Family Medicine
DX: Z12.31 Encounter for screening mammogram for malignant neoplasm of breast (principal)

== ENCOUNTER → 2021-11-26 | Outpatient (CLI) | payer BC, OTHER ==
[~2021-11-26] MED LIST changes: +LOSA50TA28 PO; -LOSA50TA88 PO
[2021-11-26 07:03] LABS: HEMATOCRIT 41.1 % (36.0-47.0); HEMOGLOBIN 12.5 g/dl (12.0-15.5); MEAN CORPUSCULAR HEMOGLOBIN 21.7 pg (27.0-33.0); MEAN CORPUSCULAR HGB CONC 30.4 g/dl (32.0-36.5); MEAN CORPUSCULAR VOLUME 71.2 fl (80.0-96.0); PLATELET COUNT, AUTOMATED 256 10^3/uL (150-450); RED BLOOD COUNT 5.77 10^6/uL (4.00-5.40); WHITE BLOOD COUNT 7.7 10^3/uL (4.0-10.0)
[2021-11-26 07:26] LABS: ALBUMIN 3.4 GM/DL (3.2-5.2); ALT/SGPT 24 U/L (12-78); BILIRUBIN,TOTAL 0.2 MG/DL (0.2-1.0); BLOOD UREA NITROGEN 12 MG/DL (7-18); CALCIUM LEVEL 8.7 MG/DL (8.8-10.2); CARBON DIOXIDE LEVEL 30 MEQ/L (21-32); CHLORIDE LEVEL 106 MEQ/L (98-107); CHOLESTEROL LEVEL 125 MG/DL (<200); CHOLESTEROL RISK RATIO 1.984 (<5); CREATININE FOR GFR 0.93 MG/DL (0.55-1.30); GLOMERULAR FILTRATION RATE > 60.0 (>45); GLUCOSE, FASTING 153 MG/DL (70-100); HDL CHOLESTEROL 63 MG/DL (>40); LDL CHOLESTEROL 46 MG/DL (<100); NON-HDL-C 62 MG/DL; POTASSIUM SERUM 4.3 MEQ/L (3.5-5.1); SODIUM LEVEL 139 MEQ/L (136-145); TOTAL PROTEIN 7.5 GM/DL (6.4-8.2); TRIGLYCERIDES LEVEL 82 MG/DL (<150)
[2021-11-26 07:33] LABS: MALB URINE SIEMENS 7.4 MG/L; MAU/CREAT RATIO 6.4 MCG/MG (0.0-30.0)
== END ==
LOC: M LAB 06:24
PROVIDERS: ATTEND Family Medicine
DX: E11.9 Type 2 diabetes mellitus without complications (principal)

== ENCOUNTER → 2022-02-25 | Outpatient (CLI) | payer BC, OTHER | LOC: M WHC 07:09 | PROVIDERS: ATTEND Family Medicine | DX: Z12.31 Encounter for screening mammogram for malignant neoplasm of breast (principal) ==

== ENCOUNTER → 2022-08-26 | Outpatient (REF) | payer BC, OTHER | LOC: M SFHCWAGY 17:59 | PROVIDERS: ATTEND Nurse Practitioner Family | DX: Z12.4 Encounter for screening for malignant neoplasm of cervix (principal) | CPT/HCPCS: 87624; G0123 ==

== ENCOUNTER → 2022-09-13 | Outpatient (CLI) | payer BC, OTHER | LOC: M RAD 11:05 | PROVIDERS: ATTEND Student in an Organized Health Care Education/Training Program | DX: M51.36 Other intervertebral disc degeneration, lumbar region (principal); M54.50 Low back pain, unspecified ==